=== PATIENT | female | born 1960 | race Caucasian/White ===

== ENCOUNTER 2017-02-09 16:30 | Emergency (ER) | payer BC ==
[2017-02-09] MEDS ORDERED: Morphine 4 MG/ML VIAL ONE (17:08)
[2017-02-09] MEDS ORDERED: Lidocaine 1% (PF) 30 ML VIAL ONE (17:28)
--- NOTE | 2017-02-10 04:04 | CON ---
DATE OF CONSULTATION: 02/09/2017 CHIEF COMPLAINT: Horse bite to lower lip. HISTORY OF PRESENT ILLNESS: The patient is a 56-year-old bipolar female visiting the area from [facility]. She has family that lives here. She was visiting when a horse that she was next to bit her lowe r lip. She was taken by EMS to [facility] in [place]. PAST MEDICAL HISTORY: Significant for bipolar and numerous other drugs that the patient did not know . ALLERGIES: None. MEDICATIONS: Reviewed in the chart. SOCIAL HISTORY: The patient is on disability and does not smoke. Refer to past medical, surgical, and social history as well as review of systems, please see the ER jone zepeda which was reviewed. PHYSICAL EXAMINATION: HEENT: Normocephalic. There is a large gaping defect of her light lower lip. There are numerous tr aumatic flaps on the oral mucosa. There is also a curvilinear rent at just off the attached gingiva just on the unattached mucosa. ASSESSMENT: Complicated laceration with defect of the lower lip. Plan for repair. Following induction of adequate local anesthesia in the form of bilateral mental nerve blocks as well as right infraorbital nerve block, the patient was prepped and draped in the usual sterile fashion i n supine position. The repair was done from the inside working towards the out. First, many traumat ic flaps were debrided. The curvilinear incision just off the attached gingiva was then closed in la yers using 5-0 Monocryl suture to reapproximate the muscle that even from the bone. The mu cosa was then closed using a combination of interrupted and running 5-0 chromic suture. The orbicula ris mir which was missing was then primarily closed and with several 5-0 Monocryl sutures. This bro ught together the defect and showed several of the traumatic flaps orally had to be excised to allow for a linear closure of the mucosa with 5-0 chromic suture. The white role was identified and then s ecured with 5-0 Monocryl suture followed by 6-0 Prolene suture. Traumatic flaps were excised on the skin side as well as additional incisions made to compensate for the missing one-third of the lip. T he skin defect was closed in the layers using 5-0 Monocryl suture and 6-0 Prolene suture. The total length of the closure was 11 cm. The patient tolerated the procedure well.
== END 2017-02-09 18:57 | disposition home or self-care (01) ==
LOC: ERS 16:30
DX: S01.511A Laceration without foreign body of lip, initial encounter (principal); E78.5 Hyperlipidemia, unspecified; F41.9 Anxiety disorder, unspecified; F32.9 Major depressive disorder, single episode, unspecified; I10 Essential (primary) hypertension; W55.11XA Bitten by horse, initial encounter
CPT/HCPCS: 12054; 96374; 96375; J0696; J2001; J2270